=== PATIENT | female | born 1995 | race African-American/Black ===

== ENCOUNTER 2023-05-19 19:57 | Outpatient (REF) | payer MEDICAID, SELFPAY ==
[2023-05-25 17:09] LABS: Age Gdln ACOG Testing Note (.); HPV Aptima Negative (Negative); IGP, Aptima HPV, rfx 16/18,45 Note (.)
== END 2023-05-19 19:58 | disposition home or self-care (01) ==
LOC: LAB 19:57
PROVIDERS: PCP Obstetrics & Gynecology; Visit Provider Obstetrics & Gynecology
DX: Z12.4 Encounter for screening for malignant neoplasm of cervix (principal)
CPT/HCPCS: 87624; G0145

== ENCOUNTER 2023-08-14 09:02 | Outpatient (OUT) | payer MEDICAID, SELFPAY ==
--- NOTE | 2023-08-14 09:05 | US_ITS ---
The [address] [address] Patient Name: CURT MOCK MRN: [id number] date: 1995 Sex: F Assigned Patient Location: US Current Patient Location: US Accession/Order Number: [id number] Exam Date: 08/14/2023 09:06 Report Date: 08/14/2023 15:31 At the request of: CATRACHO BURNETTE Procedure: US OB transvaginal EXAMINATION: US OB transvaginal HISTORY: MISSED MENSES COMPARISON: No relevant comparison available. FINDINGS: GESTATIONAL SAC: Present and normal appearing. YOLK SAC: Present and normal appearing. POLE: Present and normal appearing. CARDIAC: Present. UTERUS: Normal size and appearance. OVARIES: Right: Corpus lutein cyst. Left: Normal. CERVIX: 4.4 cm in length and closed. CUL-DE-SAC: Normal. OTHER: Prominent uterine vessels. Hypervascular prominent periuterine vessels. AGE BY LMP: Unknown LMP EDWARD BY LMP: AGE BY US CRL: 6 weeks 2 days EDWARD BY US CRL: 04/06/2024 US/US OB transvaginal IMPRESSION: 1. Single live intrauterine 6 weeks 2 days by today's ultrasound. Electronically authenticated by: MICHELL WISE Date: 08/14/2023 15:31
== END 2023-08-14 09:03 | disposition home or self-care (01) ==
LOC: US 09:02
PROVIDERS: PCP Obstetrics & Gynecology; Visit Provider Obstetrics & Gynecology
DX: Z34.91 Encounter for supervision of normal pregnancy, unspecified, first trimester (principal); Z3A.01 Less than 8 weeks gestation of pregnancy; N92.6 Irregular menstruation, unspecified
CPT/HCPCS: 76817

== ENCOUNTER 2023-09-08 12:31 | Outpatient (OUT) | payer MEDICAID, SELFPAY ==
[2023-09-08 13:25] LABS: Eosinophils Percent Auto 0.2 % (0.9-7.0); Hematocrit 38.7 % (36.0-48.0); Hemoglobin 13.1 g/dL (12.0-16.0); Immature Granulocytes Abs Auto 0.01 10^3/uL (0.00-0.03); Immature Granulocytes Pct Auto 0.2 % (0.0-0.5); Lymphocytes Absolute Auto 1.1 10^3/uL (1.2-3.8); Lymphocytes Percent Auto 23.1 % (20.5-60.0); Mean Corpuscular HGB Conc 33.9 g/dL (29.9-35.2); Mean Corpuscular Hemoglobin 27.3 pg (26.7-34.0); Mean Corpuscular Volume 80.6 fL (81.0-99.0); Mean Platelet Volume 8.9 fL (9.5-13.5); Monocytes Absolute Auto 0.4 10^3/uL (0.3-0.8); Monocytes Percent Auto 8.6 % (1.7-12.0); Neutrophils Absolute Auto 3.1 10^3/uL (1.4-6.5); Neutrophils Percent Auto 67.9 % (43.0-75.0); Platelet Count 292 10^3/uL (150-450); Red Cell Distribution Width 12.5 % (11.0-15.0); White Blood Count 4.6 10^3/uL (4.0-11.0)
[2023-09-08 13:51] LABS: Estimated Average Glucose 97 mg/dL
[2023-09-08 14:01] LABS: Thyroid Stimulating Hormone 0.241 uIU/mL (0.358-3.740)
[2023-09-09 06:08] LABS: HBsAg Screen Negative (Negative); HCV Ab Non Reactive (Non Reactive); HIV Ab/p24 Ag Screen Non Reactive (Non Reactive)
== END 2023-09-08 12:32 | disposition home or self-care (01) ==
LOC: LAB 12:32
PROVIDERS: PCP Obstetrics & Gynecology; Visit Provider Obstetrics & Gynecology
DX: N92.6 Irregular menstruation, unspecified (principal); Z36.0 Encounter for antenatal screening for chromosomal anomalies
CPT/HCPCS: 36415; 83036; 84443; 85025; 86592; 86762; 86803; 86850; 86900; 86901; 87086; 87340; 87389

== ENCOUNTER 2023-09-09 15:02 | Emergency (ER) | payer MEDICAID, SELFPAY ==
[2023-09-09 15:19] VITALS: BP 121/73; PULSE 99; RESP 16; TEMP 36.9; O2SAT 100; BMI 19.2
--- NOTE | 2023-09-09 15:34 | ECG_ITS ---
The [facility] Test Date: 2023-09-09 Pat Name: CURT MOCK Department: Room: - Gender: Female Emt Dispatcher: : 1995 Requested By: CATRACHO BURNETTE Order Number: [id number] Reading MD: MAGGIE PRECIADO Measurements Intervals [place] Rate: 78 P: 47 [place]: 150 QRS: 86 QRSD: 80 T: 62 QT: 360 QTc: 393 Interpretive Statements 1100 Sinus rhythm 9110 normal ECG No previous ECG available for comparison Electronically Signed On 09-10-2023 7:13:14 EST by MAGGIE PRECIADO
[2023-09-09 16:01] LABS: Basophils Percent Auto 0.1 % (0.2-2.0); Hematocrit 38.2 % (36.0-48.0); Hemoglobin 12.8 g/dL (12.0-16.0); Immature Granulocytes Abs Auto 0.01 10^3/uL (0.00-0.03); Immature Granulocytes Pct Auto 0.1 % (0.0-0.5); Lymphocytes Absolute Auto 0.8 10^3/uL (1.2-3.8); Lymphocytes Percent Auto 11.8 % (20.5-60.0); Mean Corpuscular HGB Conc 33.5 g/dL (29.9-35.2); Mean Corpuscular Volume 80.6 fL (81.0-99.0); Mean Platelet Volume 8.8 fL (9.5-13.5); Monocytes Absolute Auto 0.4 10^3/uL (0.3-0.8); Monocytes Percent Auto 5.8 % (1.7-12.0); Neutrophils Absolute Auto 5.6 10^3/uL (1.4-6.5); Neutrophils Percent Auto 82.2 % (43.0-75.0); Platelet Count 261 10^3/uL (150-450); Red Blood Count 4.74 10^6/uL (4.20-5.40); Red Cell Distribution Width 12.5 % (11.0-15.0); White Blood Count 6.9 10^3/uL (4.0-11.0)
[2023-09-09 16:01] LABS: Bilirubin Urine NEGATIVE (NEGATIVE); Blood Urine NEGATIVE (NEGATIVE); Clarity Urine CLEAR (CLEAR); Color Urine YELLOW (YELLOW); Glucose Urine UA NEGATIVE (NEGATIVE); Ketones Urine TRACE mg/dL (NEGATIVE); Leukocyte Esterase Urine NEGATIVE (NEGATIVE); Nitrite Urine NEGATIVE (NEGATIVE); Protein Urine 30 mg/dL (NEG/TRACE); Urobilinogen Urine 0.2 EU/dL (0.2-1.0); pH Urine 6.5 (5.0-9.0)
[2023-09-09 16:04] LABS: Urine Microscopic Indicated NO
[2023-09-09 16:12] LABS: Alanine Aminotransferase 25 U/L (14-59); Albumin Globulin Ratio 0.9; Albumin Level 3.4 g/dL (3.4-5.0); Alkaline Phosphatase 67 U/L (46-116); Anion Gap 11.5; Aspartate Amino Transferase 14 U/L (15-37); BUN Creatinine Ratio 11.3; Bilirubin Total 0.8 mg/dL (0.2-1.0); Calcium 9.2 mg/dL (8.5-10.1); Carbon Dioxide 23.6 mmol/L (21.0-32.0); Chloride 101 mmol/L (98-107); Estimated GFR (African America >60 (>=60); Estimated GFR (Non-African Ame >60 (>=60); Globulin 3.9 g/dL; Glucose 65 mg/dL (74-106); Potassium 3.1 mmol/L (3.5-5.1); Sodium 133 mmol/L (136-145); Total Protein 7.3 g/dL (6.4-8.2)
[2023-09-09] MEDS: ONDANSETRON PF 4 MG/2 ML VIAL IV (16:19)
[2023-09-09] MEDS: ACETAMINOPHEN 500 MG TABLET 1000 MG PO (16:19)
[2023-09-09] MEDS: 0.9 % SODIUM CHLORIDE 1,000 ML 999 ML IV (16:20)
[2023-09-09 16:32] VITALS: PULSE 67
--- NOTE | 2023-09-09 16:54 | ED.GENADUL1 ---
HPI - General Adult General Chief complaint: Dizziness Stated complaint: Seizures Time Seen by Provider: 09/09/23 15:13 Source: patient Mode of arrival: walk-in Limitations: no limitations History of Present Illness HPI narrative: The patient is about 10 weeks . She had recently seen her data architect manager, Dr. Brush, in order to get medication for nausea. She started that medication yesterday. Today she had an episode in which she felt dizzy and felt as if she was going to pass out. She apparently had tremors or some sort of shakiness. She admits to pain in the jaw and the back of the head. She denied any blurred vision or change in hearing, ringing in the ear, nasal congestion or cough. She denied any recent injury to the head or neck. She denies any nausea, vomiting, problems urinating or having a bowel movement. No vaginal bleeding. No prior history of syncope or cardiomyopathy associate with . Related Data Allergies Allergy/AdvReac Type Severity Reaction Status Date / Time No Known Drug Allergies Allergy Verified 09/09/23 15:25 PFSH PFSH Social History Smoking status: Never smoker Exam Narrative Exam Narrative: Nurses notes and vital signs reviewed and patient is not hypoxic. Afebrile General: Well-appearing and in no apparent distress. Skin: Warm, dry, no pallor noted. No rash. Head: Normocephalic, atraumatic. Neck: Supple, non-tender. Eye: Pupils are equal, round and EOMI. No scleral icterus. Ears, Nose, Mouth, and Throat: TM are clear, no posterior oropharynx erythema or nasal mucosal hypertrophy, uvula is mid-line Oral mucosa is moist Cardiovascular: Borderline tachycardia. Respiratory: No accessory muscle use or respiratory distress. Lungs are clear to auscultation, no wheezing, rales or rhonchi Musculoskeletal: normal ROM, no calf or popliteal tenderness, no lower extremity edema/swelling GI: Abdomen is soft, non-distended. Normal bowel sounds. No tenderness to palpation. No rebound, guarding, or rigidity noted. Neurological: A&O x4. No cranial nerve dysfunction observed. No truncal ataxia. Moves all extremities. Sensation intact. Psychiatric: Cooperative and interactive. Normal mood and affect. Constitutional Vital Signs, click to edit/add: Last Vital Signs Temp 98.4 F 09/09/23 15:19 Pulse 99 H 09/09/23 15:19 Resp 16 09/09/23 15:19 BP 121/73 09/09/23 15:19 Pulse Ox 100 09/09/23 15:19 O2 Del Method Room Air 09/09/23 15:19 Course Vital Signs Vital signs: Vital Signs Temperature 98.4 F 09/09/23 15:19 Pulse Rate 99 H 09/09/23 15:19 Respiratory Rate 16 09/09/23 15:19 Blood Pressure 121/73 09/09/23 15:19 Pulse Oximetry 100 09/09/23 15:19 Oxygen Delivery Method Room Air 09/09/23 15:19 Temperature 98.4 F 09/09/23 15:19 Pulse Rate 99 H 09/09/23 15:19 Respiratory Rate 16 09/09/23 15:19 Blood Pressure 121/73 09/09/23 15:19 Pulse Oximetry 100 09/09/23 15:19 Oxygen Delivery Method Room Air 09/09/23 15:19 Medical Decision Making MDM Narrative Medical decision making narrative: Patient was placed on loan approver and EKG obtained. Blood drawn and sent for evaluation. She was ordered to receive a liter of normal saline IV fluid and IV Zofran. White blood cell count is normal but left shift is noted. CMP notable for minimally decreased sodium at 133, decreased potassium at 3.1, normal renal function, normal LFTs. UA negative. The patient was ordered to receive oral potassium in the emergency department. She was informed of results which includes a normal EKG. She was discharged home with recommendation to increase her fluid intake, continue to take the antiemetic as prescribed and see her data architect manager for follow-up. Emergency department return if she worsens. Lab Data Lab results reviewed: Yes I reviewed the patient's lab results Labs: Lab Results 09/09/23 09/09/23 Range/Units 15:35 15:48 WBC 6.9 (4.0-11.0) 10^3/uL RBC 4.74 (4.20-5.40) 10^6/uL Hgb 12.8 (12.0-16.0) g/dL Hct 38.2 (36.0-48.0) % MCV 80.6 L (81.0-99.0) fL MCH 27.0 (26.7-34.0) pg MCHC 33.5 (29.9-35.2) g/dL RDW 12.5 (11.0-15.0) % Plt Count 261 (150-450) 10^3/uL MPV 8.8 L (9.5-13.5) fL Neut % (Auto) 82.2 H (43.0-75.0) % Lymph % (Auto) 11.8 L (20.5-60.0) % [place] % (Auto) 5.8 (1.7-12.0) % Eos % (Auto) 0.0 L (0.9-7.0) % Baso % (Auto) 0.1 L (0.2-2.0) % Neut # (Auto) 5.6 (1.4-6.5) 10^3/uL Lymph # (Auto) 0.8 L (1.2-3.8) 10^3/uL [place] # (Auto) 0.4 (0.3-0.8) 10^3/uL Eos # (Auto) 0.0 (0.0-0.7) 10^3/uL Baso # (Auto) 0.0 (0.0-0.1) 10^3/uL Abs Immat Gran (auto) 0.01 (0.00-0.03) 10^3/uL Imm/Tot Granulo (auto) 0.1 (0.0-0.5) % Sodium 133 L (136-145) mmol/L Potassium 3.1 L (3.5-5.1) mmol/L Chloride 101 (98-107) mmol/L Carbon Dioxide 23.6 (21.0-32.0) mmol/L Anion Gap 11.5 BUN 8.0 (7.0-18.0) mg/dL Creatinine 0.71 (0.55-1.02) mg/dL Est GFR ( Amer) >60 (>=60) Est GFR (Non-Af Amer) >60 (>=60) BUN/Creatinine Ratio 11.3 Glucose 65 L (74-106) mg/dL Calcium 9.2 (8.5-10.1) mg/dL Total Bilirubin 0.8 (0.2-1.0) mg/dL AST 14 L (15-37) U/L ALT 25 (14-59) U/L Alkaline Phosphatase 67 (46-116) U/L Total Protein 7.3 (6.4-8.2) g/dL Albumin 3.4 (3.4-5.0) g/dL Globulin 3.9 g/dL Albumin/Globulin Ratio 0.9 Urine Color Yellow (YELLOW) Urine Clarity Clear (CLEAR) Urine pH 6.5 (5.0-9.0) Ur Specific [place] 1.010 (1.005-1.025) Urine Protein 30 A (NEG/TRACE) mg/dL Urine Glucose (UA) Negative (NEGATIVE) mg/dL Urine Ketones Trace A (NEGATIVE) mg/dL Urine Occult Blood Negative (NEGATIVE) Urine Nitrite Negative (NEGATIVE) Urine Bilirubin Negative (NEGATIVE) Urine Urobilinogen 0.2 (0.2-1.0) EU/dL Ur Leukocyte Esterase Negative (NEGATIVE) ECG Data Attestation: I personally reviewed and interpreted this ECG as follows: Interpretation: EKG interpretation: Emergency Department physician interpretation. Normal sinus rhythm at 78bpm. Normal axis, normal intervals and no ST segment elevation or depression. Normal EKG Discharge Plan Discharge Chief Complaint: Dizziness Clinical Impression: Dizziness, Acute hypokalemia Patient Disposition: Home, Self-Care Time of Disposition Decision: 16:58 Instructions: Hypokalemia (ED), Dizziness (ED) Stand Alone Forms: Portal Instructions Referrals: Eliecer Brush DO [Primary Care Provider] - 1 week
[2023-09-09] MEDS: POTASSIUM CHLORIDE 10 MEQ ER TABLET 40 MEQ PO (17:13)
[2023-09-09 17:27] VITALS: BP 119/80; PULSE 73; RESP 16; O2SAT 100
== END 2023-09-09 17:34 | disposition home or self-care (01) ==
PROVIDERS: Emergency Provider Emergency Medicine; PCP Obstetrics & Gynecology
DX: O99.281 Endocrine, nutritional and metabolic diseases complicating pregnancy, first trimester (principal); E87.6 Hypokalemia; Z3A.10 10 weeks gestation of pregnancy; O26.891 Other specified pregnancy related conditions, first trimester; R42 Dizziness and giddiness
CPT/HCPCS: 36415; 80053; 81003; 85025; 93005; 96361; 96374; 99285

== ENCOUNTER 2023-09-16 09:40 | Outpatient (OUT) | payer MEDICAID, SELFPAY ==
--- OUTSIDE RECORDS SUMMARY | 2023-09-16 09:45 | XMS_ITS | CCD ---
Author Name Unknown Address [address] [place] [address] Organization [facility] Care Team Providers Care Extractor Operator Name Role Phone DR CATRACHO BURNETTE Consulting Unavailable MISC, DR SALAZAR Primary Care Unavailable DR CATRACHO BURNETTE Attending Unavailable DR CATRACHO BURNETTE Admitting Unavailable CATRACHO BURNETTE Attending Unavailable Problems Problem Classification Problem Date Documented Date Episodic/Chronic Immunizations and screening for infectious disease (1 source) Encounter for screening for human papillomavirus (HPV); Translations: [ENC SCREENING HUMAN PAPILLOMAVIRUS] Onset: 11-29-2021 Episodic Other screening for suspected conditions (not mental disorders or infectious disease) (4 sources) Encounter for screening for malignant neoplasm of cervix; Translations: [ENC SCREENING MALIG NEOPLASM CERV] Onset: 11-28-2021 Episodic Results Test Name Value Interpretation Reference Range Facil ity PAP ACOG PANEL 2: 21 to 29on 12-05-2021 . . Normal [facility] Comment on above: Performed By: #### [id number] #### [facility] [address] [address] [address] Raymundo Emerson Age Gdln ACOG Testing 19- Normal [facility] Comment on above: Performed By: #### [id number] #### [facility] [address] [address] [address] Raymundo Emerson DIAGNOSIS: Comment [facility] Comment on above: Result Comment: NEGATIVE FOR INTRAEPITHE LIAL LESION OR MALIGNANCY. Performed By: #### [id number] #### [facility] [address] [address] [address] Raymundo Emerson Methodology: Comment [facility] Comment on above: Result Comment: This liquid based ThinPr ep(R) pap test was screened with the use of an image guided system. Performed By: #### [id number] #### [facility] [address] [address] [address] Raymundo Emerson Note: Comment Normal [facility] Comment on above: Result Comment: The Pap smear is a scree audra test designed to aid in the detection of premalignant and malignant conditions of the uterine cervix. It is not a diagnostic procedure and should not be used as the sole means of detecting cervical cancer. Both false-positive and false-negative reports do occur. . Performed By: #### [id number] #### [facility] [address] [place] [address] Dr. Raymundo Emerson Performed by: Comment Normal [facility] Comment on above: Result Comment: Johnny Upton totechnologist (ASCP) Performed By: #### [id number] #### [facility] [address] [place] [address] Dr. Raymundo Emerson Reflex Criteria: Comment Normal [facility] Comment on above: Result Comment: The HPV DNA reflex crite bill were not met with this specimen result therefore, no HPV testing was performed. . Performed By: #### [id number] #### [facility] [address] [place] [address] Dr. Raymundo Emerson Specimen adequacy: Comment Normal [facility] Comment on above: Result Comment: Satisfactory for evaluat ion. Endocervical and/or squamous metaplastic cells (endocervical component) are present. Areas of partially obscuring blood are present. Performed By: #### [id number] #### [facility] [address] [place] [address] Dr. Raymundo Emerson Encounters Encounter Date Encounter Type Care Provider Facility Start: 09-08-2023 End: 09-08-2023 ambulatory CATRACHO VASILE Not Available Start: 08-14-2023 End: 08-14-2023 ambulatory CATRACHO VASILE Not Available Start: 11-28-2021 End: 11-28-[address] CATRACHO BURNETTE Facility: Payers Date Payer Category Payer Medicaid [id number] 1995 Unknown [id number] [id number] 1995 Unknown [id number] 1995 Unknown [id number] 1961 Unknown [id number] Summary Purpose Family History No Family History Records FoundNo Family History Records Found Advance Directives No Advanced Directives Records FoundNo Advanced Directives Records Found Additional Source Comments INFORMATION SOURCE (unrecogn ized section and content) DATE CREATED AUTHOR 12/06/2021 [facility] DATE CREATED AUTHOR AUTHOR'S VIRIDIANA VEGA 09/10/2023 [facility] dic[facility] Specialists [facility] FOR RECORDS PERTAINING TO PATIENTS WHO ARE OR HAVE BEEN ENROLLED IN A CHEMICAL DEPENDENCY/SUBSTANCEABUSE PROGRAM, SOME INFORMATION MAY BE OMITTED. This clinical summary was aggregated from multiple sources. Caution should be exercised in using it in the provision of clinical care. This summary normalizes information from multiple sources, and as a consequence, information in this document may materially change the coding, format and clinical context of patient data. In addition, data may be omitted in some cases. CLINICAL DECISIONS SHOULD BE BASED ON THE PRIMARY CLINICAL RECORDS. [facility] [employer] [facility]. provides no warranty or guarantee of the accuracy or completeness of information in this document.
[2023-09-16 12:27] LABS: HCG Quantitative 9564 mIU/mL
== END 2023-09-16 09:41 | disposition home or self-care (01) ==
LOC: LAB 09:41
PROVIDERS: PCP Obstetrics & Gynecology; Visit Provider Physician Assistant
DX: O20.9 Hemorrhage in early pregnancy, unspecified (principal); A53.0 Latent syphilis, unspecified as early or late
CPT/HCPCS: 36415; 84702; 86592

== ENCOUNTER 2023-09-16 10:28 | Outpatient (OUT) | payer MEDICAID, SELFPAY ==
--- NOTE | 2023-09-16 10:30 | US_ITS ---
The [address] [address] Patient Name: CURT MOCK MRN: [id number] date: 1995 Sex: F Assigned Patient Location: US Current Patient Location: US Accession/Order Number: [id number] Exam Date: 09/16/2023 10:31 Report Date: 09/16/2023 11:06 At the request of: CATRACHO BURNETTE Procedure: US OB transvaginal EXAMINATION: US OB transvaginal HISTORY: VIABILITY. BLEEDIN IN EARLY PREGNANCE COMPARISON: 08/14/2023 FINDINGS: The previously identified intrauterine gestation is no longer visualized. The endometrium is thickened and heterogeneous measuring 2.1 cm without vascularity The uterus is normal in size, contour and myometrial echotexture. Retroverted, retroflexed. The right ovary is normal measuring 3.9 x 1.3 x 1.8 cm. The left ovary is normal measuring 2.4 x 1.6 x 1.7 cm. Findings relayed by the technologist to Irena Kirkpatrick at the time of the ultrasound exam US/US OB transvaginal IMPRESSION: Nonvisualization of the previously noted intrauterine gestation Electronically authenticated by: SAÚL RIVERA Date: 09/16/2023 11:06
--- OUTSIDE RECORDS SUMMARY | 2023-09-16 10:41 | XMS_ITS | CCD ---
Author Name Unknown Address [address] [place] [address] Organization [facility] Care Team Providers Care Home Lighting Adviser Name Role Phone DR CATRACHO BURNETTE Consulting [...] 21 to 29on 12-05-2021 . . Normal [facility] Comment on above: Performed By: #### [id number] #### [facility] [address] [address] [address] Raymundo Emerson Age Gdln ACOG Testing 19- Normal [facility] Comment on above: Performed By: #### [id number] #### [facility] [address] [address] [address] Raymundo Emerson DIAGNOSIS: Comment [facility] Comment on above: Result Comment: NEGATIVE FOR INTRAEPITHE LIAL LESION OR MALIGNANCY. Performed By: #### [id number] #### [facility] [address] [address] [address] Raymundo Emerson Methodology: Comment [facility] Comment on above: Result Comment: This liquid based ThinPr ep(R) pap test was screened with the use of an image guided system. Performed By: #### [id number] #### [facility] [address] [address] [address] Raymundo Emerson Note: Comment Normal [facility] Comment on above: Result Comment: The Pap smear is a scree audra test designed to aid in the detection of premalignant and malignant conditions of the uterine cervix. It is not a diagnostic procedure and should not be used as the sole means of detecting cervical cancer. Both false-positive and false-negative reports do occur. . Performed By: #### [id number] #### [facility] [address] [place] [address] Dr. Raymundo Emerson Performed by: Comment Normal [facility] Comment on above: Result Comment: Johnny Upton totechnologist (ASCP) Performed By: #### [id number] #### [facility] [address] [place] [address] Dr. Raymundo Emerson Reflex Criteria: Comment Normal [facility] Comment on above: Result Comment: The HPV DNA reflex crite bill were not met with this specimen result therefore, no HPV testing was performed. . Performed By: #### [id number] #### [facility] [address] [place] [address] Dr. Raymundo Emerson Specimen adequacy: Comment Normal [facility] Comment on above: Result Comment: Satisfactory for evaluat ion. Endocervical and/or squamous metaplastic cells (endocervical component) are present. Areas of partially obscuring blood are present. Performed By: #### [id number] #### [facility] [address] [place] [address] Dr. Raymundo Emerson Encounters Encounter Date Encounter Type Care Provider Facility Start: 09-08-2023 End: 09-08-2023 ambulatory CATRACHO VASILE Not Available Start: 08-14-2023 End: 08-14-2023 ambulatory CATRACHO VASILE Not Available Start: 11-28-2021 End: 11-28-[address] CATRACHO BURNETTE Facility: Payers Date Payer Category Payer Medicaid [id number] 1995 Unknown [id number] [id number] 1995 Unknown [id number] 1995 Unknown [id number] 1961 Unknown [id number] Summary Purpose Family History No Family History Records FoundNo Family History Records Found Advance Directives No Advanced Directives Records FoundNo Advanced Directives Records Found Additional Source Comments INFORMATION SOURCE (unrecogn ized section and content) DATE CREATED AUTHOR 12/06/2021 [facility] DATE CREATED AUTHOR AUTHOR'S VIRIDIANA VEGA 09/10/2023 [facility] dicga Specialists [facility] FOR RECORDS PERTAINING TO PATIENTS WHO ARE [...] BE BASED ON THE PRIMARY CLINICAL RECORDS. [facility] [employer] [facility]. provides no warranty or guarantee of the accuracy or completeness of information in this document.
== END 2023-09-16 10:29 | disposition home or self-care (01) ==
LOC: US 10:28
PROVIDERS: PCP Obstetrics & Gynecology; Visit Provider Obstetrics & Gynecology
DX: O20.9 Hemorrhage in early pregnancy, unspecified (principal); A53.0 Latent syphilis, unspecified as early or late; Z3A.00 Weeks of gestation of pregnancy not specified
CPT/HCPCS: 36415; 76817; 84702; 86592